=== PATIENT | male | born 1955 | race Caucasian/White ===

== ENCOUNTER 2020-12-04 09:34 | Inpatient (IN) ==
--- NOTE | 2020-11-07 14:33 | PAT Medication Instructions ---
Medication Instructions Date of Service November 07, 2020 Home Medications allopurinol 300 mg PO QAM amlodipine 5 mg PO QAM aspirin 81 mg PO Q2D hydrochlorothiazide 12.5 mg PO QAM hydroxychloroquine 200 mg PO QAM indomethacin 25 mg PO DAILY PRN irbesartan 300 mg PO QAM lovastatin 20 mg PO QAM Continue as directed aspirin 81 mg PO Q2D (continue as normal prior to surgery unless told otherwise by surgeon) ASK your surgeon for instructions indomethacin 25 mg PO DAILY PRN ASK your prescriber and surgeon hydroxychloroquine 200 mg PO QAM DO NOT take the morning of surgery hydrochlorothiazide 12.5 mg PO QAM irbesartan 300 mg PO QAM Take morning of surgery With a small sip of water, OTHERWISE NOTHING TO EAT OR DRINK AFTER MIDNIGHT: allopurinol 300 mg PO QAM amlodipine 5 mg PO QAM lovastatin 20 mg PO QAM Other Notes If you have any questions please call us at [phone] or [phone] or [phone] or [phone]
--- NOTE | 2020-11-09 08:18 | History & Physical Report ---
Date of Service November 09, 2020 date of surgery: 12/04/20 Procedure: Left Total Knee Arthroplasty Assessment & Plan (1) Arthritis of knee, left: Risks and benefits of procedure discussed in detail today, patient would like to proceed with a Left total knee replacement at [facility] as scheduled. will obtain medical clearance from Dr Barnett prior to surgery as well as obtain PATs at [facility]. Will place on ASA 81mg po bid x 1 month post op, f/u 2 weeks post op for routine post-operative care and x-ray, sooner if having any problems. will make arrangements for HHPT at the time of discharge. At this point in time, has failed conservative measures and would like to proceed with surgical intervention. The risks and benefits have been discussed including, but not limited to, risk of infection, nerve injury, stiffness, loss of motion, failure to improve, etc. Reasonable outcomes and options of treatment were discussed. An explanation of appropriate alternatives to the procedure that may be advantageous were discussed and their risks and benefits, as well as the risks and benefits of not proceeding with treatment. I offered to answer any additional inquiries concerning the treatment involved. All the patient's questions were answered. The patient is agreeable, understanding of the treatment plan and alternatives, and wishes to proceed with the treatment plan. History of Present Illness Chief Complaint: left knee pain Primary Care Provider: Sahil Barnett Rian is a 64 year old male who complains of left knee pain, presents for pre-op evaluation prior to a left total knee replacement by dr Sorenson at [facility]. he complains of pain, decreased range of motion and stiffness in his left knee. He states that the symptoms occur constantly with intermittent worsening. Currently the patient states that the symptoms are moderate-severe. The pain is described as aching, sharp and throbbing. The symptoms occur continuously. The symptoms are aggravated by ascending stairs, daily activities, first steps while awake walking. Prior NSAIDs include Ibuprofen, Indomethacin and Aleve. He does wear a brace and sometimes uses a cane to assist with ambulation. Allergies Allergy/AdvReac Type Severity Reaction Status Date / Time No Known Allergies Allergy Verified 11/01/20 09:47 Home Medications Medication Instructions Recorded Confirmed Type allopurinol 300 mg PO QAM 11/01/20 11/01/20 History amlodipine 5 mg PO QAM 11/01/20 11/01/20 History aspirin 81 mg PO Q2D 11/01/20 11/01/20 History hydrochlorothiazide 12.5 mg PO QAM 11/01/20 11/01/20 History hydroxychloroquine 200 mg PO QAM 11/01/20 11/01/20 History indomethacin 25 mg PO DAILY PRN 11/01/20 11/01/20 History irbesartan 300 mg PO QAM 11/01/20 11/01/20 History lovastatin 20 mg PO QAM 11/01/20 11/01/20 History Past Med/Surg History Medical History Asthma stable GERD (gastroesophageal reflux disease) occasional, nighttime symptoms Gout Hyperlipidemia Hypertension Osteoarthritis Sjogren's disease Surgical History Hx of colonoscopy Hx of hemorrhoidectomy Social History Smoking Status: Never smoker Second Hand Exposure: No; Hx Alcohol Use: No Hx Substance Use: No Preferred Language: Central [place] Communication Ability: Effective Golf Course Ranger Required: No Beliefs That Will Affect Care: None Current Living Situation: Spouse Feels Safe at Home: Yes Assistive Devices: Glasses Review of Systems Review of Systems: All systems reviewed & are unremarkable except as noted in HPI & below Constitutional: no fever, no chills and no sweats Respiratory: no cough and no dyspnea Cardiovascular: no chest pain, no dyspnea and no orthopnea Gastrointestinal: no abdominal pain, no nausea and no vomiting Musculoskeletal: as per Subjective / HPI Physical Exam Physical Exam: HT: 6ft WT: 99.3kg BP: 140/90 Pulse: 76 Constitutional: WD/WN, vitals as above no acute distress Respiratory: normal respiratory effort, lungs clear to auscultation no respiratory distress, no labored breathing and does not use accessory muscles Cardiovascular: RRR, no murmur, no edema Gastrointestinal (Abdomen): normal bowel sounds, soft, nontender, no hepatosplenomegaly Musculoskeletal: Knee: + knee abnormal to inspection (LEFT KNEE-), + effusion (+1 effusion), + surgical incision (well healed portals), + limited ROM of knee (ROM 0/3/110), + knee ROM with crepitation, + joint line tenderness (medial joint line) and + Ward's sign positive; no deformity, no skin erythema, no ecchymosis, no valgus laxity, no varus laxity, anterior drawer test negative, Daron's sign negative and pivot shift test negative Results & Data Results & Data ([facility]) Diagnostic Findings Left Knee X-ray: left knee series confirm advanced degenerative changes to the left knee, greatest medial compartments and patellofemoral joint, showing joint space narrowing, osteophyte formation and subchondral sclerosis. no acute bony pathology noted.
--- NOTE | 2020-11-09 12:12 | Anesthesiology Consultation ---
Date of Service November 09, 2020 Assessment & Plan (1) Encounter for pre-operative examination: - Diabetes: Preop labs reveal hgba1c 7.6%. No known hx of diabetes per patient. Surgeon's office made aware. Report forwarded to PCP. Awaiting PCP response as well as surgeon-ordered PCP clearance. - Check BSG AM DOS - Stress test: Received EKG portion of stress test from 06/01/19. Awaiting nuclear portion. - COVID screening: Per assessment on 11/09: Travel screen negative, no known COVID-19 positive contacts or current COVID-19 related symptoms. Surgeon arranging preop COVID testing (scheduled 11/27; LUCILA Prasad). Awaiting results. Chart Review Chart Review: Patient seen in Pre Admission Testing Teaching & Discussion Pre-Anesthesia Teaching/Discussion Notes: Instructed NPO after midnight before surgery,except medications with 15 cc of water. Medication instructions provided according to the PAT guidelines. History Surgery Operation Date: 12/04/20 11:25 Proposed Procedures p Left Total Knee Arthroplasty - Sahil Sorenson DO Height/Weight Height: 6 ft Weight: 103.3 kg Allergies Allergy/AdvReac Type Severity Reaction Status Date / Time No Known Allergies Allergy Verified 11/01/20 09:47 Medications Home Medications Medication Instructions Recorded Confirmed Last Taken allopurinol 300 mg PO QAM 11/01/20 11/01/20 Unknown amlodipine 5 mg PO QAM 11/01/20 11/01/20 Unknown aspirin 81 mg PO Q2D 11/01/20 11/01/20 Unknown hydrochlorothiazide 12.5 mg PO QAM 11/01/20 11/01/20 Unknown hydroxychloroquine 200 mg PO QAM 11/01/20 11/01/20 Unknown indomethacin 25 mg PO DAILY PRN 11/01/20 11/01/20 Unknown irbesartan 300 mg PO QAM 11/01/20 11/01/20 Unknown lovastatin 20 mg PO QAM 11/01/20 11/01/20 Unknown Past Medical History Medical History Asthma stable Diabetes ? new diagnosis (hgba1c 7.6% on preop labs) GERD (gastroesophageal reflux disease) occasional, nighttime symptoms Gout Hyperlipidemia Hypertension Osteoarthritis Sjogren's disease Exercise / Class Metabolic Activity II 4-5 Yardwork/Stairs/Walk up hill Past Surgical History Surgical History Hx of colonoscopy Hx of hemorrhoidectomy Past Anesthesia History No Hx of Anesthesia Complications and No Family Hx of Anesthesia Complications History of PONV No Hx of PONV and Hx of Motion Sickness (occasional (i.e. reading in car)) Social History Smoking Status: Never smoker Do You Dip or Chew Tobacco: No Hx Alcohol Use: No Hx Substance Use: No substance use type: does not use Review of Systems Chronic cough x 15 years (unchanged) Patient denies chest pain, shortness of breath, dyspnea on exertion, fever, chills, wheezing, palpitations. Physical Exam Vital Signs VITALS BP 153/87 P 69 TEMP 98.4 SP02 97%RA RESP 16 PHYSICAL Full neck and c-spine range of motion. Full TMJ range of motion. TMD 4 finger breaths Mallampati Score 3 Dentition: missing molars Lungs: clear throughout to auscultation Cardiac: regular rate and rhythm, no murmurs noted Spine: normal Carotid arteries: negative bruit Extremities: no edema Trimmed luu Testing Laboratory Results 11/09/20 12:40 11/09/20 12:40 PT 10.3 Seconds (9.0-12.0) 11/09/20 12:40 INR 1.0 (0.9-1.1) 11/09/20 12:40 APTT 24.4 Seconds (21.0-31.0) 11/09/20 12:40 Hemoglobin A1c 7.6 % (4.5-5.6) H 11/09/20 12:40 Urine Color Yellow 11/09/20 12:40 Urine Appearance Clear (Clear) 11/09/20 12:40 Urine pH 5.5 (4.5-7.5) 11/09/20 12:40 Ur Specific [place] 1.018 (1.000-1.030) 11/09/20 12:40 Urine Protein 2+ (Negative) H 11/09/20 12:40 Urine Glucose (UA) Negative (Negative) 11/09/20 12:40 Urine Ketones Negative (Negative) 11/09/20 12:40 Urine Nitrite Negative (Negative) 11/09/20 12:40 Ur Leukocyte Esterase Negative (Negative) 11/09/20 12:40 Urine WBC (Auto) 1-5 /hpf (0-5) 11/09/20 12:40 Urine RBC (Auto) 0-4 /hpf (0-4) 11/09/20 12:40 U Hyaline Cast (Auto) 0 /lpf (0-5) 11/09/20 12:40 U Epithel Cells (Auto) 0-5 /lpf (0-5) 11/09/20 12:40 Urine Bacteria (Auto) Negative (Negative) 11/09/20 12:40 Blood Type O Positive 11/09/20 12:40 Antibody Screen NEGATIVE 11/09/20 12:40 Electrocardiogram Date: 06/01/19 Sinus rhythm at 54 bpm. NS TWA. Chest X-Ray Date: 11/09/20 FINDINGS: The heart is normal in size. There is no failure. There is no focal pulmonary consolidation. There are no pleural effusions. There are posti nflammatory granulomas at the right lung base. IMPRESSION: No active disease in the chest. Echocardiogram Date: 05/06/19 EF 60%. No regional wall motion abnormality RVSP 34 mmHg. Mild elevated LA pressures. Stress Test Date: 06/01/19 Type: nuclear (Lexiscan) Normal stress ECG with Lexiscan infusion. Nuclear findings to be reported separately.
--- NOTE | 2020-11-09 13:17 | XRay Report ---
XR chest Pre-admission PA/Lat CLINICAL HISTORY: Preoperative chest COMPARISON STUDY: No previous studies for comparison. FINDINGS: The heart is normal in size. There is no failure. There is no focal pulmonary consolidation . There are no pleural effusions. There are postinflammatory granulomas at the right lung base. IMPRESSION: No active disease in the chest. ACT 112: Negative or not required by law. Electronically signed by: Baron Sebastian M.D. 11/09/2020 1:16 PM
[2020-11-09 15:14] LABS: Basophils # (auto) 0.02 K/uL (0-0.2); Basophils % (auto) 0.4 %; Eosinophils # (auto) 0.09 K/uL (0-0.5); Eosinophils % (auto) 1.8 %; Hematocrit (blood only) 42.2 % (42-52); Hemoglobin 15.1 g/dL (14.0-18.0); Immature Granulocytes # (auto) 0.02 K/uL (0.00-0.02); Immature Granulocytes % (auto) 0.4 %; Lymphocytes # (auto) 1.47 K/uL (1.2-3.4); Lymphocytes % (auto) 30.2 %; Mean Corpuscular Hemoglobin 34.2 pg (25-34); Mean Corpuscular Hgb Conc 35.8 g/dL (32-36); Mean Corpuscular Volume 95.5 fL (80-100); Mean Platelet Volume 11.2 fL (7.4-10.4); Monocytes # (auto) 0.43 K/uL (0.11-0.59); Monocytes % (auto) 8.8 %; Neutrophils # (auto) 2.84 K/uL (1.4-6.5); Neutrophils % (auto) 58.4 %; Platelet Count 180 K/uL (130-400); RDW Coefficient of Variation 13.7 % (11.5-14.5); RDW Standard Deviation 47.7 fL (36.4-46.3); Red Blood Count 4.42 M/uL (4.7-6.1); White Blood Count 4.87 K/uL (4.8-10.8)
[2020-11-09 15:22] LABS: BUN Creatinine Ratio 15.8 (10-20); Calcium 9.5 mg/dl (8.5-10.1); Creatinine Clr Calc Pharmacy 79.6 ml/min; Est GFR (Non-African American) 66.4; Potassium 3.7 mmol/L (3.5-5.1)
[2020-11-09 15:28] LABS: Appearance Urine Clear (Clear); Bacteria Urine Automated Negative (Negative); Bilirubin Urine Negative (Negative); Blood Urine Negative (Negative); Cast Urine Automated 0 /lpf (0-5); Color Urine Yellow; Epithelial Cell Urine Auto 0-5 /lpf (0-5); Glucose Urine UA Negative (Negative); Ketones Urine Negative (Negative); Leukocyte Esterase Urine Negative (Negative); Nitrite Urine Negative (Negative); Protein Urine 2+ (Negative); RBC Urine Automated 0-4 /hpf (0-4); Specific Gravity Urine 1.018 (1.000-1.030); Urobilinogen Urine Negative (Negative); pH Urine 5.5 (4.5-7.5)
[2020-11-09 15:34] LABS: Partial Thromboplastin Ratio 0.9; Partial Thromboplastin Time 24.4 Seconds (21.0-31.0); Prothrombin Time 10.3 Seconds (9.0-12.0)
[2020-11-10 06:01] LABS: Estimated Average Glucose 171 mg/dl; Hemoglobin A1C 7.6 % (4.5-5.6)
[~2020-12-04 09:34] MED LIST: ACETAMINOPHEN 500 MG TAB PO SCH; BUPIVACAINE 0.25% 30 ML VIAL ONE; BUPIVACAINE 0.5 % 5 MG/1 ML PF 10ML VIAL ONE; CeleBREX 200 MG CAP PO SCH; FAMOTIDINE 20 MG TAB PO SCH; GABAPENTIN 300 MG CAP PO SCH; LR 500ML BOLUS, THEN 15ML/HR IV SCH; METOCLOPRAMIDE HCL 10 MG TABLET PO SCH; ROPIVACAINE 0.5% HCL/PF 150 MG, BUPIVACAINE 0.75% MPF 20 ML, EPINEPHrine 30MG/30ML (OR ... INFIL SCH; Scopolamine 1 MG TDSY TD SCH; TRANEXAMIC ACID 1,000 MG **IV Intra-op IV SCH; TRANEXAMIC ACID 1,000 MG **IV Pre-op IV SCH; ceFAZolin 2000MG 2,000 MG/15 ML SYR IV SCH; dexAMETHasone 4 MG TAB PO SCH
--- NOTE | 2020-12-04 10:30 | History & Physical Bridge Note ---
Date of Service December 04, 2020 History & Physical Bridge Note I have examined the patient, reviewed the History & Physical and in the interval since the performance of the History & Physical I have noted the following changes of clinical significance: no changes noted
[2020-12-04] MEDS ORDERED: ATROPINE SULFATE 0.1 MG/ML 10ML SYR IV PRN (12:16)
[2020-12-04] MEDS ORDERED: ePHEDrine sulfate 50 MG/ML AMP IV PRN (12:16)
[2020-12-04] MEDS ORDERED: ONDANSETRON INJ 2 MG/ML 2 ML VIAL IV PRN ×2 (12:16→17:10)
[2020-12-04] MEDS ORDERED: fentaNYL citrate 100 MCG/2 ML VIAL IV PRN (12:16)
[2020-12-04] MEDS ORDERED: MIDAZOLAM HCL 1 MG/ML 2ML VIAL ONE ×2 (12:23→13:59)
[2020-12-04] MEDS ORDERED: BACITRACIN INJ 50,000 UNIT VIAL ONE (13:17)
[2020-12-04] MEDS ORDERED: ORTHO JOINT ANESTHETIC ONE (13:17)
--- NOTE | 2020-12-04 14:52 | Operative Report ---
Post Operative Report Pre & Post Diagnosis Operation Date: 12/04/20 12:25 <No data on this case meets the specified criteria> I identified the patient and participated in the time-out.: Yes Procedure Operation Date: 12/04/20 12:25 Actual Procedures p Left Total Knee Arthroplasty utilizing [employer] journey to nonblock total knee arthroplasty size 7 femur 6 tibia 9 poly 35 oval patella- Sahil Sorenson DO Surgeon Sahil Sorenson DO Geomagnetician Roberth GABRIEL Estimated Blood Loss 5 Findings Consistent with Post-Op Diagnosis Patient presents with ongoing planes of pain above his left knee with severe end-stage tricompartmental degenerative joint disease varus alignment subchondral sclerosis marginal osteophytes eburnated [id number] varus alignment with a moderate to large effusion Specimens Bone and cartilage Drains Medium bore Hemovac Anesthesia Type MAC Spinal Regional Complications none Disposition Accompanied Patient To Recovery: No Disposition: Recovery Room Indications Patient presents with advanced DJD of the left knee no response to conservative management failed attempted physical therapy corticosteroid injection Visco supplementation relative rest activity modification presents today for left total knee arthroplasty the above intraoperative findings were noted Description of Procedure After proper prepping and draping of the left lower extremity anterior midline incision was made over the region of the extensor extensor mechanism after meticulous hemostasis was obtained and maintained in subcutaneous tissues a medial parapatellar incision was made The patella was subluxed lateralward the medial lateral gutter were cleaned from any hypertrophic synovitis and scar tissue of the distal femoral block was placed and the distal femoral osteotomy cut was made subsequently the chamfers anterior and posterior osteotomy cuts were made utilizing the 4-in-1 block the tibia was subsequently subluxed anteriorward medial and ateral meniscal remnants were excised in their entirety remnants of the anterior and posterior cruciate ligaments were excised in their entirety excellent exposure of the proximal tibia was obtained the tibial osteotomy guide was placed on the proximal tibial osteotomy cut was made once again the knee was irrigated with copious amounts of sterile saline solution the patella was subsequently everted lateralward thickened scar tissue around the patella was removed the patella was subsequently cut utilizing a freehand technique and was drilled prepared for final preparation and placement of patella socially flexion-extension gaps were checked and the equal and symmetric trials were placed to the appropriate femoral and tibial trials with poly-spacer being placed for equal flexion and extension gaps and full range of motion including extension to 0 and flexion to 140 the trial components after having been taken to recovery range of motion was subsequently removed meticulous hemostasis was obtained and maintained subsequently a knee block injection of joint cocktail including ropivacaine 0.5% 150 mg. Bupivacaine 0.5% epinephrine 1-200,030 mL's toradol 30 mg dexamethasone 4 mg ketamine 10 mg clonidine 100 micrograms normal saline solution 30 mg was infiltrated into the soft tissues of the posterior knee medial lateral gutters and periosteal synovium special attention was paid to protect neurovascular structures at all times subsequently trial components having been removed the knee was irrigated with sterile saline solution. debris was removed the proximal tibia was subsequently prepared and was made ready for the placement of the tibial component tibial component was also cemented and tamped into position the femoral component was subsequently placed and cemented in the position the patellar component was subsequently cemented in position because hemostasis once again obtained and maintained wound having been thoroughly irrigated with debridement and debridement lavage was performed as well as a medial parapatellar incision closed with #1 Vicryl in interrupted fashion subcutaneous was closed with #2 Vicryl skin was closed with skin clips. PA-C was necessary for prepping and drapping as well as wound closure of deep fascia Sub cutaneous tissue and skin and was necessary for the case. A sterile compressive dressing was placed patient was taken to recovery in stable condition of report dictated by Delta I attest to the content of the Intraoperative Record and any orders documented therein. Any exceptions are noted below. I attest to the content of the Intraoperative Record and any orders documented therein. Any exceptions are noted below.
[2020-12-04] MEDS ORDERED: LIDOCAINE HCL 2% 2 ML VIAL/AMP(20MG/ML) INFIL ONE (15:23)
[2020-12-04] MEDS ORDERED: PROPOFOL IV EMULSION 10 MG/ML 20 ML VIAL IV ONE (15:23)
--- NOTE | 2020-12-04 15:56 | XRay Report ---
XR knee LT 1 or 2V routine HISTORY: 64 years-old Male Surgical Post Op [knee total joint arthroplasty COMPARISON: MRI left knee 11/09/2020 TECHNIQUE: 2 views of the left knee FINDINGS: Total joint arthroplasty and patella resurfacing. Anterior midline skin robina with expected postope rative soft tissue swelling and deep tissue air. No acute fracture or retained foreign body. Surgical drainage catheters. IMPRESSION: Left knee total joint arthroplasty with expected postoperative changes. ACT 112: Negative or not required by law. The above report was generated using voice recognition software. It may contain grammatical, syntax o r spelling errors. Electronically signed by: Angel Fu M.D. 12/04/2020 3:54 PM
[2020-12-04] MEDS ORDERED: Scopolamine CHECK PATCH PLACEMENT SCH (16:00)
--- NOTE | 2020-12-04 16:49 | Anesthesiology Progress Note ---
Date of Service December 04, 2020 Anesthesia Post Procedure Vital Signs Vital Signs: Temp Pulse Pulse Resp BP Pulse Ox 12/04/20 16:35 36.8 C 81 19 122/83 95 12/04/20 16:25 36.8 C 84 18 116/81 95 12/04/20 16:15 36.8 C 61 10 L 114/78 96 12/04/20 16:05 36.8 C 70 22 117/79 95 12/04/20 15:55 79 15 113/80 96 12/04/20 15:45 80 18 117/76 98 12/04/20 15:35 82 14 120/74 100 12/04/20 15:28 36.8 C 80 16 112/71 100 12/04/20 10:07 36.5 C 86 20 168/106 H 96 Transfer of Care Handoff Completed per policy Notes Mental Status: alert / awake / arousable and participated in evaluation Nausea / Vomiting: adequately controlled Pain: adequately controlled Airway Patency, RR, SpO2: stable & adequate BP & HR: stable & adequate Hydration State: stable & adequate Neuraxial Anesthesia: was administered and sensory block is resolving Anesthetic Complications: no major complications apparent and Pt Satisfied with anesthetic care
[2020-12-04] MEDS ORDERED: oxyCODONE HCL IR 5 MG TAB (IMMEDIATE RELEASE) PO PRN (17:10)
[2020-12-04] MEDS ORDERED: NALOXONE HCL 0.4 MG/1 ML VIAL/CARP IV PRN (17:10)
[2020-12-04] MEDS ORDERED: diphenhydrAMINE Capsule 25 MG CAP PO PRN (17:10)
[2020-12-04] MEDS ORDERED: MAGNESIUM HYDROXIDE SUSP 30 ML UDC PO PRN (17:10)
[2020-12-04] MEDS ORDERED: METOCLOPRAMIDE HCL INJ 5 MG/ML 2 ML VIAL IV PRN (17:10)
[2020-12-04] MEDS ORDERED: bisacodyL 10 MG SUPP PR PRN (17:10)
[2020-12-04] MEDS ORDERED: HYDROmorphone INJ 1 MG/ML SYRINGE IV PRN (17:10)
[2020-12-04] MEDS: ACETAMINOPHEN 500 MG TAB PO SCH ×2 (17:51→21:45)
[2020-12-04] MEDS: KETOROLAC TROMETHAMINE 15 MG/ML VIAL IV SCH ×2 (17:52→23:17)
[2020-12-04] MEDS: DOCUSATE SODIUM 100 MG CAP PO SCH (20:04)
[2020-12-04] MEDS: ASPIRIN 81 MG ECTAB PO SCH (20:04)
[2020-12-04] MEDS ORDERED: SENNA 8.6 MG TAB PO SCH (21:00)
[2020-12-04] MEDS: ceFAZolin 2000MG 2,000 MG/15 ML SYR IV SCH (21:44)
[2020-12-04] MEDS: SODIUM CHLORIDE 0.9% 1000ML 1,000 ML IV SCH (21:44)
[2020-12-05] MEDS: SODIUM CHLORIDE 0.9% 1000ML 1,000 ML IV SCH (05:11)
[2020-12-05] MEDS: ceFAZolin 2000MG 2,000 MG/15 ML SYR IV SCH (05:12)
[2020-12-05] MEDS: ACETAMINOPHEN 500 MG TAB PO SCH (05:12)
[2020-12-05] MEDS: KETOROLAC TROMETHAMINE 15 MG/ML VIAL IV SCH (05:12)
[2020-12-05 06:02] LABS: Hematocrit (blood only) 37.8 % (42-52); Hemoglobin 13.7 g/dL (14.0-18.0); Mean Corpuscular Hemoglobin 34.1 pg (25-34); Mean Corpuscular Hgb Conc 36.2 g/dL (32-36); Mean Platelet Volume 10.9 fL (7.4-10.4); Platelet Count 160 K/uL (130-400); RDW Coefficient of Variation 13.4 % (11.5-14.5); Red Blood Count 4.02 M/uL (4.7-6.1); White Blood Count 9.81 K/uL (4.8-10.8)
[2020-12-05 06:19] LABS: BUN Creatinine Ratio 18.3 (10-20); Calcium 8.7 mg/dl (8.5-10.1); Creatinine Clr Calc Pharmacy 77.6 ml/min; Est GFR (African American) 75.4; Potassium 3.9 mmol/L (3.5-5.1)
[2020-12-05] MEDS: DOCUSATE SODIUM 100 MG CAP PO SCH (08:06)
[2020-12-05] MEDS: ASPIRIN 81 MG ECTAB PO SCH (08:06)
[2020-12-05] MEDS ORDERED: LOVASTATIN 20 MG TAB PO SCH (09:00)
[2020-12-05] MEDS ORDERED: IRBESARTAN 150 MG TAB PO SCH (09:00)
[2020-12-05] MEDS ORDERED: allopurinoL 300 MG TAB PO SCH (09:00)
[2020-12-05] MEDS ORDERED: amLODIPine BESYLATE 5 MG TAB PO SCH (09:00)
[2020-12-05] MEDS ORDERED: MULTIVITAMIN TAB PO SCH (09:00)
--- NOTE | 2020-12-05 09:59 | Orthopedic Progress Note ---
Date of Service December 05, 2020 Assessment & Plan (1) Arthritis of knee, left: Postop day 1 status post left total knee arthroplasty. PT/OT protocols. Weightbearing as tolerated. DVT prophylaxis-aspirin p.o. twice daily, KATIE Wyatt. Pain management as written. DC planning-outpatient PT upon discharge. Admission and Anticipated Discharge Date Admission Date: December 04, 2020 Subjective Postop day 1 Patient sitting up in bed awake and alert. No complaints this morning. Pain is controlled. Denies shortness of breath, chest pain, lightheadedness. Physical Exam Physical Exam: Dressings are clean, dry, and intact. Calves are soft nontender. Neurovascular is intact. Toes are mobile. He has good dorsiflexion and plantarflexion of the operative side. Hemovac drainage was 100 mL from the previous shift. Results & Data ([facility]) Vital Signs (Past 12 Hours) Vital Signs Temp Pulse Resp BP Pulse Ox 12/05/20 07:42 36.6 C 75 16 158/79 H 97 12/05/20 02:29 36.5 C 72 18 161/92 H 95 12/04/20 22:39 36.4 C L 58 L 16 134/78 94 Laboratory Results Laboratory Results WBC 9.81 K/uL (4.8-10.8) 12/05/20 05:47 RBC 4.02 M/uL (4.7-6.1) L 12/05/20 05:47 Hgb 13.7 g/dL (14.0-18.0) L 12/05/20 05:47 Hct 37.8 % (42-52) L 12/05/20 05:47 MCV 94.0 fL (80-100) 12/05/20 05:47 MCH 34.1 pg (25-34) H 12/05/20 05:47 MCHC 36.2 g/dL (32-36) H 12/05/20 05:47 RDW Std Deviation 46.0 fL (36.4-46.3) 12/05/20 05:47 RDW Coeff of Candelaria 13.4 % (11.5-14.5) 12/05/20 05:47 Plt Count 160 K/uL (130-400) 12/05/20 05:47 MPV 10.9 fL (7.4-10.4) H 12/05/20 05:47 Immature Gran % (Auto) 0.4 % 11/09/20 12:40 Neut % (Auto) 58.4 % 11/09/20 12:40 Lymph % (Auto) 30.2 % 11/09/20 12:40 Frontier % (Auto) 8.8 % 11/09/20 12:40 Eos % (Auto) 1.8 % 11/09/20 12:40 Baso % (Auto) 0.4 % 11/09/20 12:40 Neut # (Auto) 2.84 K/uL (1.4-6.5) 11/09/20 12:40 Lymph # (Auto) 1.47 K/uL (1.2-3.4) 11/09/20 12:40 Frontier # (Auto) 0.43 K/uL (0.11-0.59) 11/09/20 12:40 Eos # (Auto) 0.09 K/uL (0-0.5) 11/09/20 12:40 Baso # (Auto) 0.02 K/uL (0-0.2) 11/09/20 12:40 Immature Gran # (Auto) 0.02 K/uL (0.00-0.02) 11/09/20 12:40 PT 10.3 Seconds (9.0-12.0) 11/09/20 12:40 INR 1.0 (0.9-1.1) 11/09/20 12:40 APTT 24.4 Seconds (21.0-31.0) 11/09/20 12:40 PTT Ratio 0.9 11/09/20 12:40 Sodium 140 mmol/L (136-145) 12/05/20 05:47 Potassium 3.9 mmol/L (3.5-5.1) 12/05/20 05:47 Chloride 109 mmol/L (98-107) H 12/05/20 05:47 Carbon Dioxide 24 mmol/L (21-32) 12/05/20 05:47 Anion Gap 7.0 (3-11) 12/05/20 05:47 BUN 21 mg/dl (7-18) H 12/05/20 05:47 Creatinine 1.17 mg/dl (0.6-1.4) 12/05/20 05:47 Est Cr Clr Drug Dosing 77.6 ml/min 12/05/20 05:47 Est GFR ( Amer) 75.4 12/05/20 05:47 Est GFR (Non-Af Amer) 65.0 12/05/20 05:47 BUN/Creatinine Ratio 18.3 (10-20) 12/05/20 05:47 Glucose 169 mg/dl (70-99) H 12/05/20 05:47 POC Glucose 184 mg/dl (70-99) H 12/04/20 17:27 Estimat Average Glucose 171 mg/dl 11/09/20 12:40 Hemoglobin A1c 7.6 % (4.5-5.6) H 11/09/20 12:40 Calcium 8.7 mg/dl (8.5-10.1) 12/05/20 05:47 Albumin 4.0 gm/dl (3.4-5.0) 11/09/20 12:40 Urine Color Yellow 11/09/20 12:40 Urine Appearance Clear (Clear) 11/09/20 12:40 Urine pH 5.5 (4.5-7.5) 11/09/20 12:40 Ur Specific [place] 1.018 (1.000-1.030) 11/09/20 12:40 Urine Protein 2+ (Negative) H 11/09/20 12:40 Urine Glucose (UA) Negative (Negative) 11/09/20 12:40 Urine Ketones Negative (Negative) 11/09/20 12:40 Urine Blood Negative (Negative) 11/09/20 12:40 Urine Nitrite Negative (Negative) 11/09/20 12:40 Urine Bilirubin Negative (Negative) 11/09/20 12:40 Urine Urobilinogen Negative (Negative) 11/09/20 12:40 Ur Leukocyte Esterase Negative (Negative) 11/09/20 12:40 Urine WBC (Auto) 1-5 /hpf (0-5) 11/09/20 12:40 Urine RBC (Auto) 0-4 /hpf (0-4) 11/09/20 12:40 U Hyaline Cast (Auto) 0 /lpf (0-5) 11/09/20 12:40 U Epithel Cells (Auto) 0-5 /lpf (0-5) 11/09/20 12:40 Urine Bacteria (Auto) Negative (Negative) 11/09/20 12:40 Blood Type O Positive 11/09/20 12:40 Antibody Screen NEGATIVE 11/09/20 12:40 Impressions Knee X-Ray 12/04/20 15:29 XR knee LT 1 or 2V routine HISTORY: 64 years-old Male Surgical Post Op [knee total joint arthroplasty COMPARISON: MRI left knee 11/09/2020 TECHNIQUE: 2 views of the left knee FINDINGS: Total joint arthroplasty and patella resurfacing. Anterior midline skin robina with expected postoperative soft tissue swelling and deep tissue air. No acute fracture or retained foreign body. Surgical drainage catheters. IMPRESSION: Left knee total joint arthroplasty with expected postoperative changes. ACT 112: Negative or not required by law. The above report was generated using voice recognition software. It may contain grammatical, syntax or spelling errors. Electronically signed by: Angel Fu M.D. 12/04/2020 3:54 PM
--- NOTE | 2020-12-05 18:25 | Discharge Summary ---
Date of Service date of discharge: December 05, 2020 Date of Admission: 12-04-20 Admission HPI Per Admitting Provider Rian is a 64 year old male who complains of left knee pain, presents for pre- op evaluation prior to a left total knee replacement by dr Sorenson at [facility]. he complains of pain, decreased range of motion and stiffness in his left knee. He states that the symptoms occur constantly with intermittent worsening. Currently the patient states that the symptoms are moderate-severe. The pain is described as aching, sharp and throbbing. The symptoms occur continuously. The symptoms are aggravated by ascending stairs, daily activities, first steps while awake walking. Prior NSAIDs include Ibuprofen, Indomethacin and Aleve. He does wear a brace and sometimes uses a cane to assist with ambulation. Principal Diagnosis left knee arthritis Discharge Exam Musculoskeletal left knee: NVDI, calf SNT, negative silvino sign. DP palpable, able to wiggle toes/ankle movement without difficulty. MAKSIM dressing clean dry and intact. expected post-operative bruising noted. Discharge Data Allergies Allergy/AdvReac Type Severity Reaction Status Date / Time No Known Allergies Allergy Verified 12/04/20 10:06 Procedures Performed Operation Date: 12/04/20 12:25 Actual Procedures p Left Total Knee Arthroplasty(Left) - Sahil Sorenson, Ordered Studies 12/04/20 05:00 US - OR guided needle placemen Routine Hospital Course (1) Arthritis of knee, left: Postop day 1 status post left total knee arthroplasty. PT/OT protocols. Weightbearing as tolerated. DVT prophylaxis-aspirin p.o. twice daily, SCDs, KATIE desir. Pain management as written. DC planning-outpatient PT upon discharge. Total Time Total Time Spent Total Time Spent (In Minutes): 20 Discharge Plan Discharge Items Patient Disposition: Home - Self-Care Reason For Visit: Unilateral Primary Osteoarthritis Knee Left Discharge Diagnosis: Osteoarthritis Left Knee Activity: Per Instructions section Weightbearing: Left weightbearing Weightbearing Comment: as tolerated with walker Non-emergency contact: Surgeon Call non-emergency contact if: your pain is not controlled, your temperature is above 101.5, your wound has increased redness and your wound has increased drainage Follow-up/Referrals: Sahil Barnett M.D. [Primary Care Provider] - Diet: Regular Addtl Attending Provider Instructions: ACTIVITY RECOMMENDATIONS: SELF CARE INSTRUCTIONS AFTER TOTAL KNEE REPLACEMENT A. You may need to continue a physical therapy program after discharge from the hospital. There are several options available to you. Your doctor will assist you in selecting the best one for you. 1. An out-patient facility 2 to 3 times a week for therapy or home therapy. 2. Continue working on all exercises taught to you in the hospital. Your goals should be to increase bending of your knee to 90 degrees and beyond and to fully straighten your knee. B. You may progress at your own pace from walking with a walker or crutches to a cane; then to no assistive devices. C. Make walking a part of your daily routine. Be up as much as comfortable with rest periods throughout the day. Rest with leg elevation is very important. Use the ice wrap frequently for the first 3-4 weeks. D. There are no restrictions on activities. You may ride in a car, shop, participate in hardwood sawyer and all social activities. E. Wear the long elastic stockings (KATIE hose) 20 hours a day for 2 weeks after surgery. They can be removed several times a day for laundering and for a bath. F. You may shower, no tub baths until cleared by your doctor. SPECIAL CARE INSTRUCTIONS: VERY IMPORTANT TO READ AND REVIEW A. There are a few signs you need to watch for after you are home. Call [facility] if you notice any of the followin. Increased severe knee pain. Some pain is expected especially when you exercise. 2. Increased swelling in your leg or knee; pain or swelling of the calf muscle in either lower leg. 3. Any fluid drainage from the incision. 4. Shortness of breath or chest pain. B. Please call [facility] at if you have any concerns or questions about your operation or recovery. The doctor or his nurse will return your call promptly. C. You must take antibiotics before dental work, bladder, bowel or other surgery. Your doctor will provide you with a permanent care to carry describing this precaution. IMPORTANT: * REMEMBER TO TAKE ASPIRIN, 81 MG, TWICE DAILY FOR 4 WEEKS UNLESS OTHERWISE DIRECTED. THIS IS YOUR BLOOD THINNER. * HIGH RISK PATIENTS MAY BE PRESCRIBED A STRONGER BLOOD THINNER. THIS WILL BE PROVIDED AT DISCHARGE. * CALL IF INCREASED PAIN, REDNESS, DRAINAGE OR FEVER GREATER THAT 101. * WEAR KATIE HOSE 20 HOURS PER DAY FOR 2 WEEKS. * MAKSIM Dressing- This is a large suction dressing covering your incision. This will help pull any excess drainage from the wound and allow your incision to heal properly. You may shower with this if you can keep the unit outside of the shower. If any bleeding or leakage is noted please call your doctor's office. This will remain on your incision for 7 days and then should be removed. This can be done yourself or by the home nursing staff if applicable. The entire unit is disposable once removed. Once removed, keep incision clean and dry. If redness or drainage is noted, please call your surgeon. IF INCISION IS LEAKING THROUGH DRESSING, CALL THE OFFICE . FOLLOW UP VISIT: If appointment is not already scheduled: Please call [facility] to make a follow-up appointment for 2 weeks after your surgery at . Stand-Alone Forms: Vastari, Smoking Cessation Medications and DC Order Prescriptions: New polyethylene glycol 3350 [Miralax] 17 gram powder in packet 17 g PO DAILY PRN (Reason: constipation) Qty: 5 RF: 0 cefadroxil 500 mg capsule 500 mg PO BID Qty: 14 RF: 0 oxycodone 5 mg Tablet 5 mg PO Q4H MDD 6 PRN (Reason: pain) Qty: 30 RF: 0 celecoxib [Celebrex] 200 mg Capsule 200 mg PO BID 14 Days Qty: 28 RF: 0 aspirin 81 mg Tablet,Delayed Release (Dr/Ec) 81 mg PO BID 30 Days Qty: 60 RF: 0 acetaminophen 500 mg Tablet 1,000 mg PO Q8 14 Days Qty: 84 RF: 0 Continued amlodipine 5 mg Tablet 5 mg PO QAM RF: 0 hydrochlorothiazide 12.5 mg Capsule 12.5 mg PO QAM RF: 0 allopurinol 300 mg Tablet 300 mg PO QAM RF: 0 hydroxychloroquine 200 mg Tablet 200 mg PO QAM RF: 0 lovastatin 20 mg Tablet 20 mg PO QAM RF: 0 irbesartan 300 mg Tablet 300 mg PO QAM RF: 0 Discontinued indomethacin 25 mg Capsule 25 mg PO DAILY PRN (Reason: gout) RF: 0 aspirin 81 mg Tablet 81 mg PO Q2D RF: 0 Discharge Orders: Discharge Order (Routine); Ordered 12/05/20 Ordered By: Ken Wright/Other Patient Handouts: High Blood Sugar (Hyperglycemia), Managing Type 2 Diabetes, Exercise to Manage Your Blood Sugar, 5 Steps for Eating Healthier, Managing Diabetes: The A1C Test Admission Data Admit Date/Time: 12/04/20 15:29 Attending Provider: Sahil Sorenson Admit Provider: Sahil Sorenson Primary Care Provider: Sahil Barnett Other Interventions: Discharge Summary Assessment (RN) Last Done: 12/05/20 11:17
[2020-12-05] MEDS ORDERED: CeleBREX 200 MG CAP PO SCH (21:00)
== END 2020-12-05 11:56 | disposition home or self-care (01) | DRG 470 ==
LOC: 3E 09:34 → ASU 09:34 → OBSVTOIN 15:29